=== PATIENT | female | born 1955 | race Caucasian/White ===

== ENCOUNTER → 2018-04-29 | Outpatient (CLI) | payer BC ==
[2018-04-29 09:27] LABS: ADD MAN DIFF? NO
[2018-04-29 09:38] LABS: BASO % 1 % (0-3); EOS # 0.1 x10^3/uL (0.0-0.7); EOS % 2 % (0-3); HEMATOCRIT 41.1 % (36.0-47.0); HEMOGLOBIN 14.1 g/dL (12.0-15.5); LYMPH # 1.5 x10^3/uL (1.0-4.8); LYMPH % 28 % (24-48); MEAN CORPUSCULAR HEMOGLOBIN 32 pg (25-35); MEAN CORPUSCULAR HGB CONC 34 g/dL (31-37); MEAN CORPUSCULAR VOLUME 93 fL (79-100); MONO # 0.4 x10^3/uL (0.0-1.1); MONO % 8 % (0-9); NEUT # 3.1 x10^3uL (1.8-7.7); NEUT % 61 % (31-73); PLATELET COUNT 170 x10^3/uL (140-400); RED CELL DISTRIBUTION WIDTH 13.5 % (11.5-14.5); WHITE BLOOD COUNT 5.1 x10^3/uL (4.0-11.0)
[2018-04-29 09:45] LABS: ALBUMIN 4.2 g/dL (3.4-5.0); ANION GAP 7 (6-14); BLOOD UREA NITROGEN 21 mg/dL (7-20); CALCIUM 8.6 mg/dL (8.5-10.1); CARBON DIOXIDE 29 mmol/L (21-32); CHLORIDE 105 mmol/L (98-107); GLUCOSE 112 mg/dL (70-99); POTASSIUM 3.9 mmol/L (3.5-5.1); SODIUM 141 mmol/L (136-145)
[2018-04-29 09:53] LABS: PARTIAL THROMBOPLASTIN TIME 27 SEC (24-38); PROTHROMBIN TIME PATIENT 12.4 SEC (11.7-14.0)
[2018-04-29 11:31] LABS: SEDIMENTATION RATE 8 (0-25)
[2018-04-29 12:04] LABS: BILIRUBIN,URINE NEGATIVE (NEG); CLARITY,URINE CLEAR; COLOR,URINE YELLOW; GLUCOSE,URINE NEGATIVE (NEG); NITRITE,URINE NEGATIVE (NEG); PH,URINE 5.5; PROTEIN,URINE NEGATIVE (NEG-TRACE); UROBILINOGEN,URINE 0.2 mg/dL (0.2 mg/dL)
[2018-04-29 12:25] LABS: BACTERIA,URINE 0 /HPF (0-FEW); RBC,URINE 0 /HPF (0-2); SQUAMOUS EPITHELIAL CELL,UR FEW /LPF; WBC,URINE 0 /HPF (0-4)
[2018-04-30 09:19] LABS: MRSA BY PCR Negative (Negative)
== END | disposition home or self-care (01) ==
LOC: SURGPAT 12:51
DX: Z01.818 Encounter for other preprocedural examination (principal); I10 Essential (primary) hypertension; Z72.0 Tobacco use
CPT/HCPCS: 36415; 71046; 80048; 81001; 82040; 82306; 85025; 85610; 85651; 85730; 87641; 93005

== ENCOUNTER → 2018-05-13 | Outpatient (CLI) | payer BC ==
[2018-05-13] MEDS: REGADENOSON 0.4 MG/5 ML DISP.SYRIN. IV (12:16)
== END | disposition home or self-care (01) ==
LOC: NM 08:42
DX: Z01.818 Encounter for other preprocedural examination (principal); I10 Essential (primary) hypertension; E03.9 Hypothyroidism, unspecified; F17.200 Nicotine dependence, unspecified, uncomplicated
CPT/HCPCS: 78452; 93017; 96374; 96375; 96376; A9500; J2785

== ENCOUNTER 2018-11-18 08:52 | Outpatient (CLI) | payer BC ==
[2018-11-18] VITALS (9 sets, daily range): BP systolic 116–154; BP diastolic 51–68
[~2018-11-18] VITALS: Ht 175.3 cm; Wt 91.2 kg
[~2018-11-18 08:52] MED LIST: AMLO10TA8 PO; AMLODIPINE PO; ASPI325T11 PO; ATORVASTATIN CA80 MG PO; BUSP10TA PO; CLOP75TA57 PO; FERR140T3 PO; HYDR-2765 PO; LEVO150T PO; LEVO200T PO; METO25TA4 PO; NAPR-514 PO; OXYC1TAB19 PO; QUET100T4 PO; SERT100T PO; SYNTHROID PO; VENTOLIN HFA18 GM INH; ZOLOFT PO
[2018-11-18 09:33] LABS: HEMATOCRIT 38.6 % (36.0-47.0); HEMOGLOBIN 13.8 g/dL (12.0-15.5); RED BLOOD COUNT 4.31 x10^6/uL (3.50-5.40); RED CELL DISTRIBUTION WIDTH 13.8 % (11.5-14.5); WHITE BLOOD COUNT 6.2 x10^3/uL (4.0-11.0)
[2018-11-18 09:41] LABS: CALCIUM 8.6 mg/dL (8.5-10.1)
[2018-11-18 09:53] LABS: PROTHROMBIN TIME PATIENT 13.2 SEC (11.7-14.0)
[2018-11-18] MEDS ORDERED: LIDOCAINE 1% PF 2 ML VIAL. ONE (10:08)
[2018-11-18] MEDS ORDERED: IOHEXOL 300 MG/ML 100ML VIAL. ONE ×2 (10:08→11:29)
[2018-11-18] MEDS ORDERED: fentaNYL PF VIAL 100 MCG/2 ML VIAL ONE (10:41)
[2018-11-18] MEDS ORDERED: VERAPAMIL 5 MG/2 ML VIAL. ONE (10:42)
[2018-11-18] MEDS ORDERED: MIDAZOLAM HCL/PF 5 MG/5 ML VIAL. ONE (10:42)
[2018-11-18] MEDS ORDERED: NITROGLYCERIN 200 MCG/2 ML SYRINGE FOR CATH/VASC LAB. ONE (10:42)
[2018-11-18] MEDS ORDERED: HEPARIN for IV BOLUS 10,000 UNIT/10 ML VIAL. ONE (10:42)
[2018-11-18] MEDS ORDERED: BIVALIRUDIN 250 MG VIAL. IV ONE ×2 (10:54→11:15)
[2018-11-18] MEDS ORDERED: HEPARIN for IV BOLUS 10,000 UNIT/10 ML VIAL. IART ONE (11:15)
[2018-11-18] MEDS ORDERED: IOHEXOL 300 MG/ML 100ML VIAL. IART ONE (11:15)
[2018-11-18] MEDS ORDERED: fentaNYL PF VIAL 100 MCG/2 ML VIAL IV ONE (11:15)
[2018-11-18] MEDS ORDERED: NITROGLYCERIN 200 MCG/2 ML SYRINGE FOR CATH/VASC LAB. IART ONE (11:15)
[2018-11-18] MEDS ORDERED: MIDAZOLAM HCL/PF 5 MG/5 ML VIAL. IV ONE (11:15)
[2018-11-18] MEDS ORDERED: LIDOCAINE 1% PF 2 ML VIAL. INJ ONE (11:15)
[2018-11-18] MEDS ORDERED: VERAPAMIL 5 MG/2 ML VIAL. IART ONE (11:15)
--- NOTE | 2018-11-18 12:23 | PDOC ---
MODERATE SEDATION ASSESSMENT RISKS/ALTERNATIVES Risks/Alternatives Risks and alternatives of this type of sedation and procedure discussed with: RISK/ALTERNATIVES: Patient H & P ON CHART H & P H & P on chart and reviewed for co-morbid conditions and appropriate labs. H&P ON CHART: Yes STATUS PREG STATUS ASSESSED: N/A MEDS/ALLERGIES REVIEWED Meds/Allergies Reviewed Medications and Allergies including time and route of recently administered narcotics and sedatives. MEDS/ALLERGIES REVIEWED: Yes ASA RATING ASA RATING: II AIRWAY ASSESSMENT Airway Assessment Airway patency, oral function limitations, presence of caps, crowns, dentures, partials, and ability to extend neck assessed. AIRWAY ASSESSMENT: Yes MALLAMPATI SCORE MALLAMPATI SCORE: II PRE-SEDATION ASSESSMENT PRE-SEDATION ASSESSMENT: Yes JAYA DYER MD Nov 18, 2018 12:23
[2018-11-18] MEDS ORDERED: NITROGLYCERIN SUBLINGUAL 0.4 MG BOTTLE OF 25. SL PRN (12:30)
--- NOTE | 2018-11-18 12:40 | CARD ---
MR#: [id number] Date of Study: 11/18/2018 Ordering Physician: JAYA DYER, Referring Physician: JAYA DYER Tech: LUCAS ROMAN RTR APPROVED REPORT Technologist: LUCAS ROMAN RTR Nurse: Lanie Srivastava R.N. Procedure(s) performed: 1. Left heart catheterization and selective coronary angiography via right t ransradial approach 2. PTCA to the right coronary artery Moderate sedation:90 Min INDICATION The indication(s) include : unstable angina . PROCEDURE NARRATIVE After explaining the risks, benefits and alternative options, informed consent was obtained from avery ent. Patient was brought to the cardiac Craft Artist and right wrist was prepped and draped in the usual fashion after confirming a positive modified Jonathan's test. Arterial access was obtained in the righ t radial artery and a 6 Cuban sheath was inserted. 6 Cuban Ray catheter was used to perform cezar ective angiography of the left and right coronary arteries. The following findings were noted. FINDINGS a. The left main coronary artery arose from the left sinus of Valsalva, gave rise to the left anteri or descending and left circumflex arteries and did not show any significant stenosis. b. The left anterior descending artery did not show any significant stenosis. c. The left circumflex artery did not show any significant stenosis. d. The right coronary artery arose from the right sinus of Valsalva and showed 80% in-stent restenos is in the midsegment immediately followed by chronic total occlusion in the mid to distal segment the re is distal reconstitution of posterior descending and posterolateral branches from left to right co llaterals. INTERVENTION The right coronary artery was engaged with a 6 Cuban JR4 guide catheter. Several initial attempts to cross the chronic total occlusion using 0.014 inch Choice PT followed by miracle Bro 6.0 with backup support from a 2.5 x 12 mm balloon were unsuccessful. Subsequently, this was successfully crossed wi th a 0.014 inch towboat pilot 200 guidewire. However, several attempts to advance 1.5 balloon across the prox imal cap were unsuccessful. Balloon inflations were performed using a 1.5 x 8 mm trek balloon near th e proximal cap edge but we could not advance the balloon into the cap. Attempts were then made to ad cassidy corsair catheter but were again unsuccessful. Patient would have benefitted from laser atherect mamie successfully were already across the lesion but this was not available at our institution. We dec ided to stop the procedure, optimize medical management and if she continues to be symptomatic and peralta s significant amount of ischemia on stress test, plan to attempt PCI via retrograde approach through the left to right collaterals. Patient part of the procedure well overall. Hemostasis in the right wr ist was achieved using TR band. There were no immediate complications. Conclusion 1. Severe single-vessel coronary artery disease - chronic total occlusion involving the right perez ry artery with xdfr-zh-gvhcc collaterals 2. PTCA to the right coronary artery unsuccessful due to inability to cross the lesion with any ball oons Recommendations Plan for optimizing antianginal therapy. We will obtain Lexiscan nuclear stress test to quantify the amount of ischemia. If patient continues to be symptomatic and has significant amount of ischemia, we will attempt PTCA u sing retrograde approach via collaterals. Signed by : Jaya Dyer, Electronically Approved : 11/18/2018 12:38:23
[2018-11-18] MEDS ORDERED: ISOSORBIDE MONONITRATE ER 30 MG TAB.ER.24H PO SCH (13:00)
[2018-11-18] MEDS ORDERED: IV 1/2 NORMAL SALINE 1,000 ML IV SCH (13:00)
[2018-11-18] MEDS ORDERED: ISOS30TA19 PO (13:43)
--- NOTE | 2018-11-18 14:40 | NUR ---
New RX for Imdur 30mg q day, called in to [facility] [address]. OMAR LEIGH
--- NOTE | 2018-11-18 15:50 | NUR ---
Discharge Pt alert and oriented x 3, gcs 15, able to tolerate PO, ambulatory with steady gait, no new c/o pain. DC instructions provided and reviewed, questions answered. Work note provided for pt to return to work on 11/25/18. RX for Imdur called into [facility]. Dressing to R wrist, clean and dry, armboard in place. Escorted out per wheelchair, family to drive. OMAR RN
[2019-03-30] MEDS ORDERED: HYDR-3164 PO (23:42)
== END 2018-11-18 15:50 | disposition home or self-care (01) ==
LOC: CCL 08:52 → UNDOADMOB 11:58 → 1 WEST ICU 11:58 → CCL 15:50
PROVIDERS: ATTEND Internal Medicine Cardiovascular Disease
DX: I25.110 Atherosclerotic heart disease of native coronary artery with unstable angina pectoris (principal); I25.82 Chronic total occlusion of coronary artery; I10 Essential (primary) hypertension; E03.9 Hypothyroidism, unspecified; E78.5 Hyperlipidemia, unspecified; J45.909 Unspecified asthma, uncomplicated; Z86.19 Personal history of other infectious and parasitic diseases; I25.2 Old myocardial infarction; Z98.890 Other specified postprocedural states; Z82.3 Family history of stroke; Z82.49 Family history of ischemic heart disease and other diseases of the circulatory system; F17.210 Nicotine dependence, cigarettes, uncomplicated; Z79.82 Long term (current) use of aspirin; Z79.899 Other long term (current) drug therapy
CPT/HCPCS: 36415; 80048; 85027; 85610; 92920; 93454; 99152; 99153; C1725; C1769; C1887; C1892; J0583; J1644; J2250; J3010; J3490; Q9967

== ENCOUNTER → 2018-11-22 | Outpatient (CLI) | payer BC ==
[2018-11-18 15:35] VITALS: BP 131/60
[~2018-11-22] MED LIST changes: +AMLO10TA6 PO; -AMLO10TA8 PO; +ISOS30TA19 PO
--- NOTE | 2018-11-25 11:45 | RAD ---
MR#: [id number] Date of Study: 11/22/2018 Ordering Physician: JAYA DYER, Referring Physician: JAYA DYER, Tech: Brina Bishop, TAE, RVT, RTR APPROVED REPORT Patient Location: OUT-PATIENT Indications Bilateral Leg Pain VELOCITY AND DOPPLER WAVEFORM ANALYSIS RIGHT cm/secWaveformSeverity LEFT cm/secWaveform Severity pCFA 169.7pCFA 149.3 Prof Fem Art. 132.4Prof Fem Art. 60.7 Fem Art Prox. 115.7Fem Art Prox. 112.2 Fem Art Mid. 120.9Fem Art Mid. 134.2 Fem Art Dist. 119.9Fem Art Dist. 127.3 Pop Art(AK) 107.3Pop Art(AK) 103.0 FLIGHT CREW ORDNANCEMAN Prox. 45.1PTA Prox. 23.7 FLIGHT CREW ORDNANCEMAN Dist. 79.2PTA Dist. 70.5 Per Art Prox. 78.5Per Art Prox. 90.7 ANTONIO Prox. 70.0ATA Prox. 62.3 DPA 66.5DPA 63.6 Findings Grayscale images of the bilateral lower extremity arterial vessels reveal mild to moderate diffuse at herosclerosis. Spectral waveforms are mostly triphasic and biphasic throughout the lower extremity arterial tree. Mildly elevated velocities noted in the bilateral common femoral arteries without any significant julia nosis. There is three-vessel runoff below the knee without any focal evidence of high-grade stenosis. Of not e the proximal posterior tibial artery on the left side has diminished velocities at 23 cm/s likely r elated to inadequate imaging angle as the distal posterior tibial artery has normal velocities. Alter natively this may be related to a more proximal stenosis with collateralization via the peroneal vess els. Critical Notification Critical Value: No <Conclusion> No significant lower extremity arterial disease. Signed by : Lalit Sky, Electronically Approved : 11/25/2018 11:43:27
== END | disposition home or self-care (01) ==
LOC: US 15:09
PROVIDERS: ATTEND Internal Medicine Cardiovascular Disease
DX: I70.293 Other atherosclerosis of native arteries of extremities, bilateral legs (principal)
CPT/HCPCS: 93925

== ENCOUNTER → 2020-12-10 | Outpatient (CLI) | payer OTHER, MEDICARE ==
[2019-03-30 23:27] VITALS: BP 143/63
[~2020-12-10] MED LIST changes: +AMLO-187 PO; -AMLO10TA6 PO; +HYDR-3164 PO; +REGADENOSON 0.4 MG/5 ML DISP.SYRIN. IV ONE
--- NOTE | 2020-12-10 12:40 | CARD ---
MR#: [id number] Date of Study: 12/10/2020 Ordering Physician: JAYA DYER, Referring Physician: JAAY DYER Tech: Teodora Vasques [facility] APPROVED REPORT EXAM: Two-dimensional and M-mode echocardiogram with Doppler and color Doppler. Other Information Quality : GoodHR: 82bpm Rhythm : NSR INDICATION CAD RISK FACTORS Hypertension Obesity Hyperlipidemia Smoking 2D DIMENSIONS RVDd4.0 (2.9-3.5cm)Left Atrium(2D)3.2 (1.6-4.0cm) IVSd1.1 (0.7-1.1cm)Aortic Root(2D)2.8 (2.0-3.7cm) LVDd4.8 (3.9-5.9cm)LVOT Diameter2.0 (1.8-2.4cm) PWd1.0 (0.7-1.1cm)LVDs3.0 (2.5-4.0cm) FS (%) 36.6 %SV71.1 ml LVEF(%)66.3 (>50%) Aortic Valve AoV Peak Davi.187.1cm/sAoV VTI37.8cm AO Peak GR.14.0mmHgLVOT Peak Davi.133.4cm/s AO Mean GR.6mmHgAVA (VMAX)2.29cm2 Mitral Valve MV E Ffqyjsjv25.6cm/sMV DECEL [id number] MV A Fivwjrzu336.7cm/sE/A Ratio0.7 Pulmonary Valve PV Peak Dfdgksko641.9cm/s Pulmonary Vein S1 Gjgvugts04.4cm/sD2 Ilxuxrxr17.0cm/s PVa [id number] LEFT VENTRICLE The left ventricle is normal size. There is borderline concentric left ventricular hypertrophy. The l eft ventricular systolic function is normal and the ejection fraction is within normal range. EF55% T here is normal LV segmental wall motion. The left ventricular diastolic function and filling is bruce l for age. RIGHT VENTRICLE The right ventricle is normal size. There is normal right ventricular wall thickness. The right ventr icular systolic function is normal. ATRIA The left atrium size is normal. The right atrium size is normal. The interatrial septum is intact wit h no evidence for an atrial septal defect or patent foramen ovale as noted on 2-D or Doppler imaging. AORTIC VALVE The aortic valve is normal in structure and function. Doppler and Color Flow revealed no significant aortic regurgitation. There is no significant aortic valvular stenosis. MITRAL VALVE The mitral valve is thickened but opens well. There is no evidence of mitral valve prolapse. There is no mitral valve stenosis. Doppler and Color-flow revealed mild eccentric jet of mitral regurgitation . TRICUSPID VALVE The tricuspid valve is normal in structure and function. Doppler and Color Flow revealed no tricuspid valve regurgitation noted. There is no tricuspid valve stenosis. PULMONIC VALVE Doppler and Color Flow revealed no pulmonic valvular regurgitation. There is no pulmonic valvular julia nosis. GREAT VESSELS The aortic root is normal in size. The ascending aorta is normal in size. The IVC is normal in size a nd collapses >50% with inspiration. PERICARDIAL EFFUSION There is no evidence of significant pericardial effusion. Critical Notification Critical Value: No <Conclusion> The left ventricular systolic function is normal and the ejection fraction is within normal range. EF 55% There is normal LV segmental wall motion. Doppler and Color-flow revealed mild eccentric jet of mitral regurgitation. Signed by : Lalit Sky, Electronically Approved : 12/10/2020 12:40:20
--- NOTE | 2020-12-10 13:29 | RAD ---
MR#: [id number] Date of Study: 12/10/2020 Ordering Physician: JAYA DYER, Referring Physician: CHERRY LOWERY Tech: RT Lucien Krueger) (N) APPROVED REPORT Test Type: Pharmacological Stress Nurse/Tech: Samanta Martínez RN Test Indications: CAD Cardiac History: HTN, PTCA, See EMR. Medications: ASA, See EMR. Medical History: Asthma, COPD, Smoker, See EMR. Resting ECG: SR Resting Heart Rate: 64 bpm Resting Blood Pressure: 145/58mmHg Pretest Chest Pain: No chest pain Nurse/Tech Notes Lungs diminished throughout; Heart tones regular. Consent: The procedure was explained to the patient in lay terms. Informed consent was witnessed. Gerardo eout was entered into clipkit. History and Stress Test performed by RT Evans (R) (N) Pharm. Details Pharmacologic stress testing was performed using 0.4mg per 5ml of regadenoson given intravenously ove r 7-10 seconds. Stress Symptoms No chest pain or symptoms. POST EXERCISE Reason for Termination: Infusion complete Max HR: 89 bpm Max Blood Pressure: 154/50mmHg Blood Pressure response to exercise: Normal blood pressure response during stress. Heart Rate response to exercise: WNL Chest Pain: No. Arrhythmia: No. ST Change: No. INTERPRETATION Stress EKG Conclusion: No evidence of stress induced EKG changes Imaging Protocol IMAGE PROTOCOL: Rest Tc-99m/stress Tc-99m 1 day Rest: Stress: Viability: Radiopharm.Tc99m WchgvlwttCy13z Sestamibi Gzat83yLc 31mCi Duration 13min. 13min. Img Date 12/10/2020 12/10/2020 Inj-Img Yuce91kcg. 60min. Rest Admin Site:IV - Right AntecubitalAdministrator:KIMBERLY Montalvo, ARRT (R)(N) Stress Admin Site: IV - Right AntecubitalAdministrator: RT Lucien Krueger)(N) STRESS DATA End Diast. Vol.109.0mlLVEDV index BSA50.0ml End Syst. Vol.33.0mlLVESV index BSA15.0ml Myocardial Vvym739.0gEject. Eaoifzce14.0% Stress Scores Regional WT0.00Summed WT5.00 Regional WM0.00Summed WM1.00 LV Perfusion There is a moderate sized FIXED basal inferior defect suggestive of prior infarct versus attenuation artifact. No significant wall motion abnormalities noted in this region. Wall Motion Normal wall motion. EF 55% LV Perf. Quant 17 Seg. SSS7.00 17 Seg. SRS4.00 17 Seg. SDS3.00 Stress Defect Extent (% LAD)0.00Rest Defect Extent (% LAD)0.00Rev. Defect Extent (% LAD)0.00 Stress Defect Extent (% LCX) 20.00Rest Defect Extent (% LCX)7.50Rev. Defect Extent (% LCX)2.50 Stress Defect Extent (% RCA)11.10Rest Defect Extent (% RCA)5.60Rev. Defect Extent (% RCA)0.00 Stress Defect Extent (% ALONSO)7.80Rest Defect Extent (% ALONSO)4.60Rev. Defect Extent (% ALONSO)0.40 Other Information Quality:Good Risk Assessment: Low Risk Conclusion 1. No evidence of stress induced EKG changes. 2. FIXED basal inferior wall defect suggestive of attenuation artifact rather than prior infarct. 3. Normal EF at 70% 4. Low risk study Signed by : Lalit Sky, Electronically Approved : 12/10/2020 13:29:04
== END ==
LOC: NM 08:00
PROVIDERS: ATTEND Internal Medicine Cardiovascular Disease
DX: I11.9 Hypertensive heart disease without heart failure (principal); I25.10 Atherosclerotic heart disease of native coronary artery without angina pectoris
CPT/HCPCS: 78452; 93017; 93306; A9500; J2785

== ENCOUNTER 2021-07-18 07:01 | Outpatient (CLI) | payer OTHER, MEDICARE ==
[~2021-07-18] VITALS: Ht 175.3 cm; Wt 104.5 kg
[2021-07-18] VITALS (13 sets, daily range): BP systolic 129–162; BP diastolic 54–78
[~2021-07-18 07:01] MED LIST changes: -REGADENOSON 0.4 MG/5 ML DISP.SYRIN. IV ONE
[2021-07-18] MEDS ORDERED: IODIXANOL 320 MG/ML 100 ML VIAL. ONE (07:39)
[2021-07-18] MEDS ORDERED: LIDOCAINE 1% PF 2 ML VIAL. ONE (07:39)
[2021-07-18] MEDS ORDERED: ASPI-630 PO (07:44)
[2021-07-18] MEDS ORDERED: RIVA10TA PO (07:44)
[2021-07-18] MEDS ORDERED: TRAZ-123 PO (07:44)
[2021-07-18 07:47] LABS: HEMATOCRIT 38.7 % (36.0-47.0); RED BLOOD COUNT 4.59 x10^6/uL (3.50-5.40); RED CELL DISTRIBUTION WIDTH 15.6 % (11.5-14.5); WHITE BLOOD COUNT 6.6 x10^3/uL (4.0-11.0)
[2021-07-18 07:55] LABS: CALCIUM 8.4 mg/dL (8.5-10.1); GFR 55.5; POTASSIUM 4.1 mmol/L (3.5-5.1)
[2021-07-18 07:56] LABS: PROTHROMBIN TIME PATIENT 13.9 SEC (11.7-14.0)
[2021-07-18] MEDS ORDERED: fentaNYL PF VIAL 100 MCG/2 ML VIAL ONE (08:23)
[2021-07-18] MEDS ORDERED: HEPARIN for IV BOLUS 10,000 UNIT/10 ML VIAL. ONE (08:23)
[2021-07-18] MEDS ORDERED: NITROGLYCERIN 200 MCG/2 ML SYRINGE FOR CATH/VASC LAB. ONE (08:23)
[2021-07-18] MEDS ORDERED: VERAPAMIL 5 MG/2 ML VIAL. ONE (08:23)
[2021-07-18] MEDS ORDERED: MIDAZOLAM HCL/PF 2 MG/2 ML VIAL. ONE (08:23)
--- NOTE | 2021-07-18 09:13 | PDOC ---
MODERATE SEDATION ASSESSMENT RISKS/ALTERNATIVES Risks/Alternatives Risks and alternatives of this type of sedation and procedure discussed with: RISK/ALTERNATIVES: Patient H & P ON CHART H & P H & P on chart and reviewed for co-morbid conditions and appropriate labs. H&P ON CHART: Yes STATUS PREG STATUS ASSESSED: N/A MEDS/ALLERGIES REVIEWED Meds/Allergies Reviewed Medications and Allergies including time and route of recently administered narcotics and sedatives. MEDS/ALLERGIES REVIEWED: Yes ASA RATING ASA RATING: II AIRWAY ASSESSMENT Airway Assessment Airway patency, oral function limitations, presence of caps, crowns, dentures, partials, and ability to extend neck assessed. AIRWAY ASSESSMENT: Yes MALLAMPATI SCORE MALLAMPATI SCORE: II PRE-SEDATION ASSESSMENT PRE-SEDATION ASSESSMENT: Yes JAYA DYER MD Jul 18, 2021 09:13
[2021-07-18] MEDS ORDERED: LIDOCAINE 1% PF 2 ML VIAL. INJ ONE (09:15)
[2021-07-18] MEDS ORDERED: HEPARIN for IV BOLUS 10,000 UNIT/10 ML VIAL. IART ONE (09:15)
[2021-07-18] MEDS ORDERED: MIDAZOLAM HCL/PF 2 MG/2 ML VIAL. IV ONE (09:15)
[2021-07-18] MEDS ORDERED: IODIXANOL 320 MG/ML 100 ML VIAL. IART ONE (09:15)
[2021-07-18] MEDS ORDERED: IV 1/2 NORMAL SALINE 1,000 ML IV SCH (09:15)
[2021-07-18] MEDS ORDERED: VERAPAMIL 5 MG/2 ML VIAL. IART ONE (09:15)
[2021-07-18] MEDS ORDERED: fentaNYL PF VIAL 100 MCG/2 ML VIAL IV ONE (09:15)
[2021-07-18] MEDS ORDERED: NITROGLYCERIN 200 MCG/2 ML SYRINGE FOR CATH/VASC LAB. IART ONE (09:15)
[2021-07-18] MEDS ORDERED: CONTRAST GIVEN. MC PRN (09:15)
--- NOTE | 2021-07-18 09:39 | CARD ---
MR#: [id number] Date of Study: 07/18/2021 Ordering Physician: JAYA LYONS, Referring Physician: JAYA LYONS, Tech: RT Shamir(R) APPROVED REPORT Technologist: RT Shamir(R) Nurse: Rafia Christensen RN Procedure(s) performed: Left heart catheterization, selective coronary angiography and left ventricul ography via right transradial approach Sedation Time: 22 Minutes Dose: 66 Gycm2 Contrast: 98 mL Ogzhkyhlt790 Fluoro Time: 3.1 Minutes INDICATION The indication(s) include : unstable angina . [facility] Clinical Frailty Scale [facility] Clinical Frailty Scale: Mildly Frail Heart Failure Heart Failure: No CASE TECHNIQUE IV conscious sedation was used throughout procedure with appropriate monitoring and was performed in the presence of a registered nurse who was an independent trained observer other than the physician p erforming the procedure. During this case, Fluoroscopy and low osmolar contrast were used for imaging . Specimen(s) Removed: No Estimated Blood loss: 10 cc's. PROCEDURE NARRATIVE After explaining the risks, benefits and alternative options, informed consent was obtained from avery ent. Patient was brought to the cardiac Kiln Mechanic and right wrist was prepped and draped in the usual fashion after confirming a positive modified Jonathan's test. Arterial access was obtained in the righ t radial artery and a 6 Khmer sheath was inserted. 6 Khmer Ray catheter was used to perform cezar ective angiography of the left and right coronary arteries. 6 Khmer pigtail catheter was used to pe rform left ventriculography. Patient tolerated the procedure well. Hemostasis was achieved using TR band. There were no immediate complications. The following findings were noted. FINDINGS 1. Hemodynamics: Left ventricular end-diastolic pressure of 22 mmHg. No pullback gradient across th e aortic valve. 2. Left ventriculography: Normal left ventricle systolic function with ejection fraction estimated at 60%. No significant mitral regurgitation seen. 3. Coronary angiography: a. The left main coronary artery arose from the left sinus of Valsalva, gave rise to the left anteri or descending, ramus intermedius and left circumflex arteries and did not show any significant stenos is. b. The left anterior descending artery did not show any significant stenosis. c. The ramus intermedius artery did not show any significant stenosis. d. The left circumflex artery did not show any significant stenosis. e. The right coronary artery was a dominant vessel arising from the right sinus of Valsalva that vivienne wed 100% chronic total occlusion within the stent in the midsegment with distal reconstitution of pos terior descending and posterolateral branches via dopt-tn-qjtnz collaterals. Conclusion 1. Severe single-vessel coronary disease, 100% chronic total occlusion within the stent in the right coronary artery 2. Normal left ventricle systolic function with ejection fraction estimated at 60% Recommendations Attempts at PCI in 2019 via antegrade approach were unsuccessful and she was managed medically. Sin e patient is presently very symptomatic, we will refer patient for PCI to HEADLIGHT ASSEMBLER of RCA possibly via ret rograde approach. Signed by : Jaya Lyons, Electronically Approved : 07/18/2021 09:39:11
--- NOTE | 2021-07-18 12:19 | NUR ---
Discharge Note: SANCHO DE LEÓN Discharge instructions and discharge home medications reviewed with Patient and a copy given. All questions have been answered and understanding verbalized. The following instructions and handouts were given: radial site care and adult moderate sedation Discontinued lines and drains: Peripheral IV intact. Patient discharged to Home or Self Care withFamily Membervia wheelchair.
== END 2021-07-18 12:21 | disposition home or self-care (01) ==
LOC: CCL 07:01
PROVIDERS: ATTEND Internal Medicine Cardiovascular Disease
DX: I25.110 Atherosclerotic heart disease of native coronary artery with unstable angina pectoris (principal); I10 Essential (primary) hypertension; E78.00 Pure hypercholesterolemia, unspecified; K21.9 Gastro-esophageal reflux disease without esophagitis; M19.90 Unspecified osteoarthritis, unspecified site; J45.909 Unspecified asthma, uncomplicated; F41.9 Anxiety disorder, unspecified; F32.9 Major depressive disorder, single episode, unspecified; F17.210 Nicotine dependence, cigarettes, uncomplicated; Z79.82 Long term (current) use of aspirin; Z79.899 Other long term (current) drug therapy; Z98.890 Other specified postprocedural states; Z72.89 Other problems related to lifestyle
CPT/HCPCS: 36415; 80048; 85027; 85610; 93458; 99152; C1769; C1894; J1644; J2250; J3010; J3490; Q9967; 99153

== ENCOUNTER → 2022-01-18 | Outpatient (CLI) | payer OTHER, MEDICARE ==
[2021-07-18 12:00] VITALS: BP 152/65
[~2022-01-18] MED LIST changes: +ASPI-630 PO; +RIVA10TA PO; +TRAZ-123 PO
--- NOTE | 2022-01-19 08:29 | RAD ---
MR#: [id number] Date of Study: 01/18/2022 Ordering Physician: JAYA LYONS, Referring Physician: JAYA LYONS, Tech: Brina Bishop RDMS, RVT, RTR APPROVED REPORT Patient Location: OUT-PATIENT Laterality:Bilateral Indications Bruit Previous Stenosis seen on Carotid in 2013 Doppler Spectral Velocity Analysis Right Left pCCA 85/20 cm/spCCA 94/25 cm/s mCCA 76/15 cm/smCCA 90/24 cm/s dCCA 93/24 cm/sdCCA 72/20 cm/s Bulb 110/26 cm/sBulb 466/81 cm/s ECA 363/ cm/sECA 176/ cm/s pICA 189/53 cm/spICA 378/47 cm/s Moriah 214/58 cm/smICA 149/27 cm/s dICA 140/36 cm/sdICA 86/30 cm/s Vert. 58/ cm/sVert. 35/ cm/s ICA/CCA 2.80ICA/CCA 4.20 Findings Grayscale images of extracranial carotid arteries bilaterally showed moderate atherosclerotic plaque involving the right carotid bifurcation and severe atherosclerotic plaque involving left carotid bifu rcation. Spectral waveform and color duplex analysis showed elevated velocities in the mid segment o f the right internal carotid artery suggestive of 50 to 69% stenosis. Left carotid bulb and proximal segment of the left internal carotid artery showed significantly elevated velocities and elevated IC A to CCA ratio 4.2 suggestive of critical/near occlusion. The right external carotid artery showed s ignificantly elevated velocities suggestive of greater than 70% stenosis. The vertebral arteries vivienne wed antegrade flow bilaterally with normal velocities. Critical Notification Critical Value: Yes <Conclusion> Carotid arterial duplex scan showed moderate 50 to 69% stenosis involving the right internal carotid artery and critical/near occlusion involving the left carotid bulb and proximal segment of the left i nternal carotid artery. Signed by : Jaya Lyons, Electronically Approved : 01/19/2022 08:29:07
== END ==
LOC: US 10:35
PROVIDERS: ATTEND Internal Medicine Cardiovascular Disease
DX: I65.23 Occlusion and stenosis of bilateral carotid arteries (principal); R09.89 Other specified symptoms and signs involving the circulatory and respiratory systems
CPT/HCPCS: 93880